=== PATIENT | female | born 1945 | race Caucasian/White ===

== ENCOUNTER → 2020-01-25 17:25 | Outpatient (CLI) | payer MEDICARE, SELFPAY ==
[2020-01-25 17:57] LABS: Basophils % 0.5 % (0.1-2.0); Eosinophils # 0.2 K/mm3 (0.0-0.4); Eosinophils % 2.8 % (0.1-12.0); Hematocrit 38.1 % (37.0-47.0); Lymphocytes # 1.9 K/mm3 (0.7-4.5); Lymphocytes % 29.2 % (10-50); Mean Corpuscular HGB Conc 34.3 g/dL (31.8-35.4); Mean Corpuscular Hemoglobin 30.7 pg (27.0-31.2); Mean Corpuscular Volume 89.6 fl (81-99); Mean Platelet Volume 8.9 fl (7.4-10.4); Monocytes # 0.4 K/mm3 (0.1-1.0); Monocytes % 5.7 % (1.7-9.3); Neutrophils # 3.9 K/mm3 (1.8-7.8); Neutrophils % 61.8 % (37.0-80.0); Platelet Count 231 K/mm3 (142-424); Red Blood Count 4.25 M/mm3 (4.20-5.40); Red Cell Distribution Width 13.6 % (11.5-17.5); White Blood Count 6.3 K/mm3 (4.8-10.8)
[2020-01-25 18:02] LABS: Alanine Aminotransferase 15 U/L (12-78); Albumin Level 4.2 g/dl (3.5-5.0); Albumin/Globulin Ratio 1.6 (1.1-1.8); Alkaline Phosphatase 115 U/L (38-126); Anion Gap 13.3 mEq/L (5-15); Aspartate Amino Transferase 35 U/L (14-36); Bilirubin,Total 0.7 mg/dl (0.2-1.3); Blood Urea Nitrogen 18 mg/dl (7-17); Calcium 9.5 mg/dl (8.4-10.2); Carbon Dioxide 29 mmol/L (22.0-30.0); Chloride 101 mmol/L (98-107); Chol/HDL Ratio 2.9 (1-3.5); Cholesterol 168 mg/dl (140-200); Estimated Glomerular Filt Rate 71 ml/min (>60); GFR (African American) 85 ML/MIN (>60); Globulin 2.6 g/dL (1.3-3.2); Glucose 107 mg/dl (74-100); HDL Cholesterol 58 mg/dl (40-60); Potassium 4.3 mmoL/L (3.5-5.1); Sodium 139 mmol/L (136-145); Total Protein,Serum 6.8 g/dl (6.3-8.2); Triglycerides 219 mg/dl (30-150); VLDL Cholesterol 44 mg/dL (0-40)
[2020-01-25 18:13] LABS: Direct LDL Cholesterol 66.58 mg/dL (100-129)
== END ==
PROVIDERS: Visit Provider Family Medicine
DX: I10 Essential (primary) hypertension (principal)
CPT/HCPCS: 80053; 80061; 85025

== ENCOUNTER → 2021-02-01 13:50 | Outpatient (CLI) | payer MEDICARE, SELFPAY ==
[2021-02-01 13:59] LABS: Chloride 102 mmol/L (98-107)
[2021-02-01 14:00] LABS: Basophils % 0.7 % (0.1-2.0); Eosinophils # 0.2 K/mm3 (0.0-0.4); Eosinophils % 2.9 % (0.1-12.0); Hematocrit 43.9 % (37.0-47.0); Lymphocytes # 1.7 K/mm3 (0.7-4.5); Lymphocytes % 28.8 % (10-50); Mean Corpuscular HGB Conc 31.7 g/dL (31.8-35.4); Mean Corpuscular Hemoglobin 30.4 pg (27.0-31.2); Mean Corpuscular Volume 95.9 fl (81-99); Mean Platelet Volume 8.6 fl (7.4-10.4); Monocytes # 0.2 K/mm3 (0.1-1.0); Neutrophils # 3.7 K/mm3 (1.8-7.8); Neutrophils % 63.6 % (37.0-80.0); Platelet Count 246 K/mm3 (142-424); Potassium 4.4 mmoL/L (3.5-5.1); Red Blood Count 4.58 M/mm3 (4.20-5.40); Red Cell Distribution Width 12.9 % (11.5-17.5); Sodium 141 mmol/L (136-145); White Blood Count 5.8 K/mm3 (4.8-10.8)
[2021-02-01 14:02] LABS: Alanine Aminotransferase 14 U/L (12-78); Albumin Level 4.1 g/dl (3.5-5.0); Albumin/Globulin Ratio 1.4 (1.1-1.8); Alkaline Phosphatase 113 U/L (38-126); Anion Gap 13.4 mEq/L (5-15); Aspartate Amino Transferase 30 U/L (14-36); Bilirubin,Total 0.4 mg/dl (0.2-1.3); Blood Urea Nitrogen 19 mg/dl (7-17); Carbon Dioxide 30 mmol/L (22.0-30.0); Estimated Glomerular Filt Rate 70 ml/min (>60); GFR (African American) 85 ML/MIN (>60); Globulin 2.9 g/dL (1.3-3.2)
[2021-02-01 14:03] LABS: Calcium 9.3 mg/dl (8.4-10.2); Chol/HDL Ratio 3.1 (1-3.5); Cholesterol 173 mg/dl (140-200); Glucose 97 mg/dl (74-100); HDL Cholesterol 56 mg/dl (40-60); Triglycerides 240 mg/dl (30-150); VLDL Cholesterol 48 mg/dL (0-40)
[2021-02-01 14:15] LABS: Direct LDL Cholesterol 72.19 mg/dL (100-129)
[2021-02-01 14:22] LABS: T4 (Thyroxine) 6.9 ug/dl (5.53-11.0)
[2021-02-01 14:34] LABS: Thyroid Stimulating Hormone 0.78 uIU/mL (0.465-4.68)
== END ==
PROVIDERS: Visit Provider Family Medicine
DX: E78.5 Hyperlipidemia, unspecified (principal); Z79.899 Other long term (current) drug therapy
CPT/HCPCS: 80053; 80061; 84436; 84443; 85025

== ENCOUNTER → 2022-01-12 09:23 | Outpatient (CLI) | payer MEDICARE, SELFPAY ==
[2022-01-11 19:00] LABS: Alanine Aminotransferase 13 U/L (12-78); Albumin Level 4.1 g/dl (3.5-5.0); Albumin/Globulin Ratio 1.4 (1.1-1.8); Alkaline Phosphatase 120 U/L (38-126); Anion Gap 12.4 mEq/L (5-15); Aspartate Amino Transferase 29 U/L (14-36); Bilirubin,Total 0.7 mg/dl (0.2-1.3); Blood Urea Nitrogen 14 mg/dl (7-17); Calcium 9.5 mg/dl (8.4-10.2); Carbon Dioxide 26 mmol/L (22.0-30.0); Chloride 105 mmol/L (98-107); Chol/HDL Ratio 3.1 (1-3.5); Cholesterol 172 mg/dl (140-200); Estimated Glomerular Filt Rate 61 ml/min (>60); GFR (African American) 74 ML/MIN (>60); Globulin 2.9 g/dL (1.3-3.2); Glucose 106 mg/dl (74-100); HDL Cholesterol 55 mg/dl (40-60); Potassium 4.4 mmoL/L (3.5-5.1); Sodium 139 mmol/L (136-145); Triglycerides 191 mg/dl (30-150); VLDL Cholesterol 38 mg/dL (0-40)
[2022-01-11 19:01] LABS: Basophils % 0.9 % (0.1-2.0); Eosinophils # 0.1 K/mm3 (0.0-0.4); Eosinophils % 2.6 % (0.1-12.0); Hematocrit 41.8 % (37.0-47.0); Hemoglobin 13.2 g/dL (12.2-16.2); Lymphocytes # 1.5 K/mm3 (0.7-4.5); Lymphocytes % 33.5 % (10-50); Mean Corpuscular HGB Conc 31.7 g/dL (31.8-35.4); Mean Corpuscular Hemoglobin 29.8 pg (27.0-31.2); Mean Corpuscular Volume 94.1 fl (81-99); Mean Platelet Volume 10.9 fl (7.4-10.4); Monocytes # 0.2 K/mm3 (0.1-1.0); Monocytes % 5.2 % (1.7-9.3); Neutrophils # 2.5 K/mm3 (1.8-7.8); Neutrophils % 57.8 % (37.0-80.0); Platelet Count 241 K/mm3 (142-424); Red Blood Count 4.44 M/mm3 (4.20-5.40); Red Cell Distribution Width 13.6 % (11.5-17.5); White Blood Count 4.4 K/mm3 (4.8-10.8)
[2022-01-12 23:35] LABS: Thyroid Stimulating Hormone 0.58 uIU/mL (0.465-4.68)
[2022-01-13 09:58] LABS: Direct LDL Cholesterol 81 mg/dL (100-129)
== END ==
PROVIDERS: PCP Family Medicine; Visit Provider Family Medicine
DX: E78.5 Hyperlipidemia, unspecified (principal); I10 Essential (primary) hypertension
CPT/HCPCS: 80053; 80061; 84443; 85025

== ENCOUNTER → 2022-01-15 10:17 | Outpatient (CLI) | payer MEDICARE, BC, SELFPAY ==
--- NOTE | 2022-01-15 10:29 | XR_ITS ---
FINAL REPORT CLINICAL HISTORY: evaluate for compression fxr FINDINGS: THORACIC SPINE Three views were obtained. There is no acute fracture. There is no malalignment. There is rightward curvature. There are mild degenerative changes. There is no soft tissue abnormality. IMPRESSION: No acute bony abnormality. Reviewed, Interpreted and Dictated by Carlos Hyman III, MD Transcribed by Amber Rai Authenticated and [facility]
--- NOTE | 2022-01-15 10:29 | XR_ITS ---
FINAL REPORT CLINICAL HISTORY: eval for compression fracture FINDINGS: LUMBAR SPINE For views were obtained. There appears to be a vertical fracture of L3 uncertain age. There is no malalignment. There is leftward curvature. There is moderate and severe degenerative change with multilevel osteophytes. There is vacuum disc phenomenon at L2-3. There is a probable 3.3 cm abdominal aortic aneurysm. There are numerous gallstones essentially filling the gallbladder. IMPRESSION: Appears to be a vertical fracture of L3 of uncertain age. This could be further evaluated with an MRI. Moderate and severe degenerative change as described. Probable 3.3 cm abdominal aortic aneurysm. Numerous gallstones within the gallbladder. Reviewed, Interpreted and Dictated by Carlos Hyman III, MD Transcribed by Amber Rai Authenticated and [facility]
== END ==
PROVIDERS: PCP Family Medicine; Visit Provider Family Medicine
DX: G89.29 Other chronic pain (principal); M54.9 Dorsalgia, unspecified; M54.6 Pain in thoracic spine; M54.50 Low back pain, unspecified
CPT/HCPCS: 72070; 72100